=== PATIENT | female | born 1955 | race Caucasian/White ===

== ENCOUNTER 2024-09-16 21:08 | Emergency (ER) | payer MEDICARE, SELFPAY ==
[2024-09-16 21:11] VITALS: BP 162/95
--- NOTE | 2024-09-16 22:32 | ED.GENMED ---
History of Present Illness
General
Chief Complaint: Head Injury
Source: patient
Exam Limitations: none
Time Seen by Provider: 09/16/24 22:29
History of Present Illness
History of Present Illness:
See MDM
Past History
Past History
ED Past Medical History: None
ED Past Surgical History: None
Social History
Tobacco: Non-smoker
Alcohol: None
Phy Exam
Physical Exam
Physical Exam:
See MDM
Course
Orders/Labs/Results
Orders:
Orders
09/16/24 21:14
CT Cervical Spine W/o Iv Contr Urgent
Comment:
Reason For Exam: fall w/headstrike
CT Head W/o Iv Contrast Urgent
Comment:
Reason For Exam: fall w/headstrike
Vital Signs
Initial and Last Documented VS:
Initial Vital Signs
Temp Pulse Resp BP Pulse Ox
97.6 F 89 16 162/95 98
09/16/24 21:11 09/16/24 21:11 09/16/24 21:11 09/16/24 21:11 09/16/24 21:11
Last Documented Vital Signs
Temp Pulse Resp BP Pulse Ox
97.6 F 89 16 162/95 98
09/16/24 21:11 09/16/24 21:11 09/16/24 21:11 09/16/24 21:11 09/16/24 21:11
MDM/Problems Addressed
Differential Diagnosis Includes:
HPI and MDM Narrative:
69-year-old female presenting for evaluation of head injury. She had a slip and fall a few days ago. Given that she hit the back part of her head and still has a headache, she was sent in for CT. CT head and CT cervical spine done prior to my
evaluation and both negative for acute fracture or bleeding. On exam, she has mild tenderness to her posterior scalp. She states the hematoma has resolved but she still has mild headache. We did discuss the possibility of mild concussion but
otherwise stable for discharge and she feels comfortable with plan
Physical exam
General: Well appearing and non-toxic
HEENT: protecting airway. Very small posterior scalp hematoma. No skin breakdown or bleeding
Neck: Nontender, supple
CV: No evidence of cyanosis
Resp: No accessory muscle use
Abd: Non-distended
Extremities: No deformities
Neuro: alert
Psych: Normal affect
Skin: Intact
Problems Addressed including Acute and Chronic Conditions affecting care:
1. Head injury
Acuity: acute
Prognosis: stable
Details: CT head negative. She has no obvious focal deficits and is mentating well
Differential Diagnosis (but not limited to): Concussion, intracranial hemorrhage, skull fracture
Drug therapy (if applicable): OTC meds, please see d/c instruction regarding Rx drugs
Amount and/or Complexity of Data Reviewed
Clinical info obtained from: Patient
External data reviewed: N/A
Labs I independently reviewed (but not limited to): N/A
Radiology: The CT scan was personally and independently reviewed. In addition, official CT report reviewed.
Pulse Ox: not hypoxic
EKG independently reviewed: N/A
Director Of Manufacturing Operations: N/A
Critical Care: N/A
Risk of Complication:
Social Determinants of health: Good social support
Discussed with other providers: N/A
Escalation of Care includes Admit/Obs: After being observed in the Emergency Department, pt stable for discharge.
Occasional wrong word or 'sound a like' substitutions may have occurred due to the inherent limitations of voice recognition software. Read the chart carefully and recognize, using context, where substitutions have occurred.
*Critical Care Note
Total Time (30-74mins, 75-104mins- exclusive of procedures): Not Applicable
ED Attending Note
-
Portions of this chart may have been created with voice recognition software.� Occasional wrong word or��sound alike� substitutions may have occurred due to the inherent limitations of voice recognition software.
Discharge Plan
Departure
Patient Disposition: Home (Routine Discharge)
Date of Disposition: 09/16/24
Time of Disposition: 22:34
Patient with high blood pressure during this ER visit?: Yes
Discharge Problem:
Head injury
Instructions: Head Injury in Adults (DC), BLOOD PRESSURE
Activity Restrictions/Additional Instructions:
Please return for any worsening symptoms.
You may return at any time if you have further concerns.
Please follow up with your doctor at the first available appointment, preferably this week.
Thank you for choosing [facility].
Interventions
Interventions:
*Risk Screen - Suicide Last Done: 09/16/24 21:11
*General Assessment Last Done: 09/16/24 21:11
*Neglect/Abuse Screening Last Done: 09/16/24 21:11
Discharge Date and Time
Print Language: [place]
[2024-09-16 22:42] VITALS: BP 170/71
== END 2024-09-16 22:44 | disposition home or self-care (01) ==
LOC: EMR 21:08
PROVIDERS: EMERGENCY PHYSICIAN Student in an Organized Health Care Education/Training Program; FAMILY PHYSICIAN Nurse Practitioner Adult Health
DX: S09.90XA Unspecified injury of head, initial encounter (principal); W19.XXXA Unspecified fall, initial encounter
CPT/HCPCS: 99284; 70450; 72125